=== PATIENT | male | born 1965 | race American Indian/Alaskan Native ===

== ENCOUNTER 2019-06-05 07:11 | Day surgery (SDC) | payer OTHER ==
[2019-06-05] MEDS ORDERED: NACL 0.9% 1000 ML 1,000 ML IV SCH (08:00)
--- NOTE | 2019-06-05 08:04 | Anesthesia Consultation ---
Anesthesia Consult and Med Hx Date of service: 06/05/19 - Airway Anesthetic Teeth Evaluation: Good ROM Head & Neck: Adequate Mental/Hyoid Distance: Adequate Mallampati Class: Class III Intubation Access Assessment: Possibly Difficult - Pre-Operative Health Status ASA Pre-Surgery Classification: ASA3 Proposed Anesthetic Plan: MAC - Pulmonary Hx Sleep Apnea: Yes (diagnosed, not using CPAP) - Cardiovascular System Hx Hypertension: Yes Hx Coronary Artery Disease: No (CHF, EF 30%) Hx Pacemaker: Yes (2015) Hx Internal Defibrillator: Yes - Endocrine Hx Non-Insulin Dependent Diabetes: Yes - Other Systems Hx Obesity: Yes (BMI 36.9)
--- NOTE | 2019-06-05 08:04 | Anesthesia Day of Surgery ---
Anesthesia Day of Surgery - Day of Surgery Patient Examined: Yes Patient H&P Reviewed: Yes Patient is NPO: Yes Beta Blockers: Yes Cardiac Clearance: Yes
[2019-06-05] MEDS ORDERED: HumuLIN R IV NR (08:18)
[2019-06-05] MEDS ORDERED: DIPRIVAN 10 MG/ML IV ONE ×3 (08:52)
--- NOTE | 2019-06-05 09:10 | Procedure Note ---
Date of procedure: 06/05/19 Pre-op diagnosis: Colon Polyp Screening Post-op diagnosis: other (No Colon Polyps or Diverticular Disease noted/ Minor, Internal Hemorrhoid) Procedure: Colonoscopy Anesthesia: MAC Surgeon: GIACOMO SCHAFER Estimated blood loss: none Pathology: none Condition: stable Disposition: same day (Resume home medication and follow up in 1 to 2 weeks ([phone]).)
--- NOTE | 2019-06-05 09:44 | Operative Report ---
COLONOSCOPY INDICATIONS: This is a 54-year-old -[place] gentleman with an underlying history of a pacemaker and defibrillator, who because of his age, had a colonoscopy done as part of colon polyp screening. Procedure was done after getting informed consent with MAC anesthesia. Initial rectal exam was unremarkable. Instrument was passed through the rectum onto the cecum, which was identified with ileocecal valve and appendiceal orifice. Visualization was fair. The mucosa was washed with copious amounts of water and the cecum was viewed on the retroverted view and also the scope was withdrawn to the hepatic flexure and reintroduced to the cecum. No additional pathology was noted in the cecum. The cecum, ascending colon, transverse colon, descending colon, and sigmoid showed normal mucosa. There was no evidence of any polyps, colitis or diverticular disease and the rectum showed some minor internal hemorrhoid on the retroverted view. ASSESSMENT: Colon polyp screening, no colon polyps noted. No diverticular disease noted and minor internal hemorrhoid. Plan is to resume previous medication. Have the patient follow up in the office in 1-2 weeks' time. The patient's procedure was done in the GI lab with assistance of anesthesia and in the presence and with the assistance of the GI lab team, which included RN, Davina Triana as well as a jamal Amina. JOB# [id number] JERED/BELLA
[2019-06-05 09:55] VITALS: BP 152/88
[2019-06-05] MEDS ORDERED: XYLOCAINE MPF 2% ONE (10:00)
== END 2019-06-05 07:12 | disposition home or self-care (01) ==
LOC: GIO 07:11
DX: Z12.11 Encounter for screening for malignant neoplasm of colon (principal); K64.8 Other hemorrhoids; I25.10 Atherosclerotic heart disease of native coronary artery without angina pectoris; I11.0 Hypertensive heart disease with heart failure; I50.9 Heart failure, unspecified; G47.30 Sleep apnea, unspecified; E11.9 Type 2 diabetes mellitus without complications; E66.9 Obesity, unspecified; Z68.36 Body mass index [BMI] 36.0-36.9, adult; Z91.013 Allergy to seafood; Z98.890 Other specified postprocedural states; Z95.0 Presence of cardiac pacemaker; Z79.899 Other long term (current) drug therapy
CPT/HCPCS: 45378; 82962; J2704; J7030; J1815